=== PATIENT | male | born 1975 | race Caucasian/White ===

== ENCOUNTER 2021-07-11 12:52 | Emergency (ER) | payer BC, SELFPAY ==
[2021-07-11] VITALS (8 sets, daily range): BP systolic 101–143; BP diastolic 61–86; PULSE 64–77; RESP 18–20; TEMP 36.6–36.7; O2SAT 92–100; BMI 28.5
--- NOTE | 2021-07-11 12:53 | CT_ITS ---
PROCEDURE INFORMATION: Exam: CT Head Without Contrast Exam date and time: 07/11/2021 12:53 PM Age: 45 years old Clinical indication: Other: Stroke protocol TECHNIQUE: Imaging protocol: Computed tomography of the head without contrast. Radiation optimization: All CT scans at this facility use at least one of these dose optimization techniques: automated exposure control; mA and/or kV adjustment per patient size (includes targeted exams where dose is matched to clinical indication); or iterative reconstruction. Other technique: STROKE PROTOCOL was implemented. COMPARISON: No relevant prior studies available. FINDINGS: Brain: There is no acute hemorrhage or mass effect. The normal isidro/white matter delineation is preserved. Cerebral ventricles: No ventriculomegaly. Paranasal sinuses: There is polypoid mucosal thickening along the floors of the maxillary sinuses. Mastoid air cells: Visualized mastoid air cells are well aerated. Bones/joints: Unremarkable. No acute fracture. Soft tissues: There is focal right parietal soft tissue swelling. IMPRESSION: No acute intracranial hemorrhage or edema. ASSESSMENT: ASPECTS ([place] Stroke Program Early CT Score) is 10.
[2021-07-11 13:15] LABS: Basophils # 0.1 K/mm3 (0-0.2); Basophils % 0.6 % (0.1-2.0); Eosinophils # 0.1 K/mm3 (0.0-0.4); Hematocrit 49.4 % (42.0-52.0); Hemoglobin 17.4 g/dL (14.1-18.0); Lymphocytes # 1.4 K/mm3 (0.7-4.5); Lymphocytes % 14.4 % (10-50); Mean Corpuscular HGB Conc 35.3 g/dL (31.8-35.4); Mean Corpuscular Hemoglobin 32.5 pg (27.0-31.2); Mean Corpuscular Volume 92.2 fl (80-94); Mean Platelet Volume 8.2 fl (7.4-10.4); Monocytes # 0.3 K/mm3 (0.1-1.0); Monocytes % 3.6 % (1.7-9.3); Neutrophils # 7.6 K/mm3 (1.8-7.8); Neutrophils % 80.5 % (37.0-80.0); Platelet Count 232 K/mm3 (142-424); Red Blood Count 5.36 M/mm3 (4.60-6.20); Red Cell Distribution Width 14.2 % (11.5-17.5); White Blood Count 9.4 K/mm3 (4.8-10.8)
[2021-07-11 13:17] LABS: Chloride 101 mmol/L (98-107); Potassium 4.1 mmoL/L (3.5-5.1); Sodium 143 mmol/L (136-145)
[2021-07-11 13:19] LABS: Alanine Aminotransferase 40 U/L (12-78); Aspartate Amino Transferase 44 U/L (17-59); Blood Urea Nitrogen 10 mg/dl (9-20); Creatinine Clearance Estimated 212 mL/min (50-200); Estimated Glomerular Filt Rate 146 ml/min (>60); GFR (African American) 177 ML/MIN (>60)
[2021-07-11 13:20] LABS: Albumin Level 4.6 g/dl (3.5-5.0); Albumin/Globulin Ratio 1.8 (1.1-1.8); Alkaline Phosphatase 58 U/L (38-126); Anion Gap 19.1 mEq/L (5-15); Bilirubin,Total 0.6 mg/dl (0.2-1.3); Calcium 9.1 mg/dl (8.4-10.2); Carbon Dioxide 27 mmol/L (22.0-30.0); Globulin 2.6 g/dL (1.3-3.2); Glucose 141 mg/dl (74-100); Total Protein,Serum 7.2 g/dl (6.3-8.2)
--- NOTE | 2021-07-11 13:47 | PC.NURSE ---
SPOKE WITH PT HAS BEEN HAVING THESE EPISODES FOR 1 1/2 YEARS. PT IS ACTING NO DIFFERENT STARTS WITH MOVEMENT TO LEFT HAND AND FOOT LASTING APPROX 30 MIN THEN BRIEF PERIOD OF UNRESPONSIVE THEN AWAKENS REPEATS WORDING CONSTANTLY TELLING YOU HE IS SORRY SLEEPS FOR APPROX 1 HOUR THEN AWAKENS FINE.
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
--- NOTE | 2021-07-11 15:17 | PC.NURSE ---
PT GOING FOR MRI
--- NOTE | 2021-07-11 15:58 | XR_ITS ---
PROCEDURE: XR ORBIT BILATERAL MIN 4V CLINICAL INDICATION: rule out metal artifact. COMPARISON: No exams were available for comparison TECHNIQUE: AP views are obtained of the orbits with the patient looking up and down. FINDINGS: No radio opaque foreign bodies evident. IMPRESSION: No radio opaque orbital foreign body identified. Dictated by: Tin Ramirez MD 07/11/2021 18:49 Tin Ramirez MD in [place] 07/11/2021 18:49
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
== END 2021-07-11 18:48 | disposition home or self-care (01) ==
PROVIDERS: Emergency Provider Emergency Medicine; PCP Family Medicine
DX: R41.0 Disorientation, unspecified (principal); S01.01XA Laceration without foreign body of scalp, initial encounter; W18.39XA Other fall on same level, initial encounter; Y92.018 Other place in single-family (private) house as the place of occurrence of the external cause; E11.9 Type 2 diabetes mellitus without complications; I10 Essential (primary) hypertension; Z88.7 Allergy status to serum and vaccine
CPT/HCPCS: 12002; 70200; 70450; 70551; 80053; 85025; 96365; 99282; J1953

== ENCOUNTER → 2021-07-19 09:29 | Outpatient (CLI) | payer BC, SELFPAY | PROVIDERS: PCP Family Medicine; Visit Provider Specialist | DX: R56.9 Unspecified convulsions (principal) | CPT/HCPCS: 95816; 95819 ==

== ENCOUNTER → 2021-08-01 11:33 | Outpatient (CLI) | payer BC, SELFPAY ==
--- NOTE | 2021-08-01 11:38 | XR_ITS ---
PROCEDURE: XR HIP RT 2-3V W/PELVIS CLINICAL INDICATION: chronic right hip pain COMPARISON: No exams were available for comparison FINDINGS: No fracture or dislocation. No significant degenerative change. No lytic or blastic change. IMPRESSION: Negative right hip Dictated by: Tin Ramirez MD 08/01/2021 17:13 Tin Ramirez MD in [place] 08/01/2021 17:13
--- NOTE | 2021-08-01 11:50 | XR_ITS ---
PROCEDURE: XR HIP LT 2-3V W/PELVIS CLINICAL INDICATION: osteoarthritis COMPARISON: CR XR HIP RT 2-3V W/PELVIS from 08/01/2021 FINDINGS: There are osteo arthritic changes involving the left hip with osteophytes the femoral head. Sclerotic focus is present in the lower ilium on the left and may represent a bone island.. IMPRESSION: Mild osteoarthritic change of the left hip Dictated by: Tin Ramirez MD 08/01/2021 17:13 Tin Ramirez MD in [place] 08/01/2021 17:13
== END ==
PROVIDERS: PCP Family Medicine; Visit Provider Specialist
DX: M25.551 Pain in right hip (principal); M25.552 Pain in left hip
CPT/HCPCS: 73502

== ENCOUNTER 2022-04-28 19:22 | Emergency (ER) | payer BC, SELFPAY ==
[2022-04-28 19:22] VITALS: BP 111/76; PULSE 82; RESP 17; TEMP 36.6; O2SAT 98; BMI 30.1
--- NOTE | 2022-04-28 19:26 | ECG_ITS ---
APPROVED REPORT Exam: Resting ECG HR:78 bpm ECG Measurements Heart Rate 78 AXES IN 144 P 32 QRSd 109 QRS 21 QT 381 T 31 QTc 414 Conclusion SINUS RHYTHM MINIMAL VOLTAGE CRITERIA FOR LVH, CONSIDER NORMAL VARIANT [MEETS CRITERIA IN ONE OF: R(aVL), S(V1), R(V5), R(V5/V6)+S(V1)] BORDERLINE ECG UNCONFIRMED REPORT Electronically signed by : Soham Sebastian MD 04/30/2022 15:14:12
[2022-04-28 19:32] LABS: POC Glucose,Bedside 129 (70-110)
--- NOTE | 2022-04-28 19:33 | XR_ITS ---
PROCEDURE INFORMATION: Exam: XR Chest Exam date and time: 04/28/2022 7:40 PM Age: 46 years old Clinical indication: Other: Syncope TECHNIQUE: Imaging protocol: Radiologic exam of the chest. Views: 2 views. COMPARISON: No relevant prior studies available. FINDINGS: Lungs: Unremarkable. No consolidation. Pleural spaces: Unremarkable. No pleural effusion. No pneumothorax. Heart/Mediastinum: Unremarkable. No cardiomegaly. Bones/joints: Unremarkable. IMPRESSION: No acute findings.
[2022-04-28 20:02] LABS: Basophils # 0.1 K/mm3 (0-0.2); Eosinophils # 0.1 K/mm3 (0.0-0.4); Eosinophils % 0.8 % (0.1-12.0); Hematocrit 49.6 % (42.0-52.0); Hemoglobin 16.4 g/dL (14.1-18.0); Lymphocytes # 1.1 K/mm3 (0.7-4.5); Lymphocytes % 11.1 % (10-50); Mean Corpuscular Hemoglobin 31.6 pg (27.0-31.2); Mean Corpuscular Volume 95.8 fl (80-94); Mean Platelet Volume 7.8 fl (7.4-10.4); Monocytes # 0.3 K/mm3 (0.1-1.0); Monocytes % 3.5 % (1.7-9.3); Neutrophils # 8.1 K/mm3 (1.8-7.8); Neutrophils % 83.7 % (37.0-80.0); Platelet Count 227 K/mm3 (142-424); Red Blood Count 5.18 M/mm3 (4.60-6.20); Red Cell Distribution Width 13.6 % (11.5-17.5); White Blood Count 9.7 K/mm3 (4.8-10.8)
[2022-04-28 20:08] LABS: Ethyl Alcohol 257 mg/dl (0-10)
[2022-04-28 20:09] LABS: Alanine Aminotransferase 51 U/L (12-78); Albumin Level 4.5 g/dl (3.5-5.0); Alkaline Phosphatase 57 U/L (38-126); Anion Gap 25.6 mEq/L (5-15); Aspartate Amino Transferase 43 U/L (17-59); Bilirubin,Indirect 0.4 mg/dL (0.0-0.9); Bilirubin,Total 0.4 mg/dl (0.2-1.3); Bilirubin,Unconjugated 0.3 mg/dL (0.0-1.1); Blood Urea Nitrogen 8 mg/dl (9-20); Calcium 8.4 mg/dl (8.4-10.2); Carbon Dioxide 19 mmol/L (22.0-30.0); Chloride 104 mmol/L (98-107); Creatinine Clearance Estimated 180 mL/min (50-200); Estimated Glomerular Filt Rate 122 ml/min (>60); GFR (African American) 148 ML/MIN (>60); Glucose 125 mg/dl (74-100); Potassium 3.6 mmoL/L (3.5-5.1); Sodium 145 mmol/L (136-145); Total Protein,Serum 6.9 g/dl (6.3-8.2)
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
[2022-04-28 21:09] VITALS: BP 136/79; PULSE 71; RESP 16; TEMP 36.7; O2SAT 98
== END 2022-04-28 21:12 | disposition home or self-care (01) ==
PROVIDERS: Emergency Medicine; Emergency Provider Emergency Medicine; PCP Family Medicine
DX: R55 Syncope and collapse (principal); R41.0 Disorientation, unspecified; R11.0 Nausea; Z79.899 Other long term (current) drug therapy; Z88.0 Allergy status to penicillin; Z88.7 Allergy status to serum and vaccine; V84.5XXA Driver of special agricultural vehicle injured in nontraffic accident, initial encounter
CPT/HCPCS: 71046; 80048; 80076; 82962; 85025; 93005; 99284

== ENCOUNTER 2022-07-02 20:32 | Emergency (ER) | payer OTHER, BC, SELFPAY ==
[2022-07-02 20:33] VITALS: BP 150/77; PULSE 81; RESP 16; TEMP 36.6; O2SAT 99; BMI 30.1
--- NOTE | 2022-07-02 21:55 | XR_ITS ---
PROCEDURE INFORMATION: Exam: XR Chest Exam date and time: 07/02/2022 9:54 PM Age: 46 years old Clinical indication: Injury or trauma; Fall; Blunt trauma (contusions or hematomas) TECHNIQUE: Imaging protocol: Radiologic exam of the chest. Views: 2 views. COMPARISON: CR XR CHEST 2V 04/28/2022 7:40 PM FINDINGS: Lungs: No acute pulmonary findings. No pulmonary consolidation. Lung volumes within normal limits. Chronic calcified right lower pulmonary granuloma. Pulmonary vessels are not congested. Pleural spaces: Unremarkable. No significant pleural effusion. No pneumothorax. Heart/Mediastinum: Cardiac size appears within normal limits. Bones/joints: There are spinal degenerative changes, with multilevel disc narrrowing and spondylosis. There is a minimal chronic deformity of the anterior left 1st rib, unchanged. No definite acute rib fracture seen on this limited study. IMPRESSION: No acute findings or significant change compared with 04/28/2022.
--- NOTE | 2022-07-02 21:55 | XR_ITS ---
PROCEDURE INFORMATION: Exam: XR Left Tibia and Fibula Exam date and time: 07/02/2022 9:57 PM Age: 46 years old Clinical indication: Injury or trauma; Fall; Blunt trauma; Lower leg; Left TECHNIQUE: Imaging protocol: Radiologic exam of the Left tibia and fibula. Views: 2 views. Four images received. COMPARISON: No relevant prior studies available. FINDINGS: Bones/joints: No acute fracture or dislocation. Knee and ankle joints appear grossly intact and normally aligned. There are no lytic skeletal lesions seen. Some overlying clothing artifacts at the knee. Tiny Achilles and plantar calcaneal spurs. Soft tissues: Mild soft tissue swelling, pretibial swelling.No radiopaque foreign bodies. No pathologic soft tissue calcification. IMPRESSION: No acute fracture or dislocation.
--- NOTE | 2022-07-02 22:10 | HMH.EDFALL ---
Discharge Plan Disposition Patient Disposition: Home, Self-Care Chief Complaint: Fall Prescriptions Prescriptions: No Action Xigduo XR 5-1,000 mg tablet, IR - ER, biphasic 24hr 1 tab PO DAILY atenolol 50 mg tablet 50 mg PO DAILY valsartan 160 mg tablet 160 mg PO DAILY multivitamin Tablet 1 tab PO DAILY levetiracetam [Keppra XR] 500 mg tablet extended release 24 hr 2,000 mg PO DAILY Qty: 360 3RF Referrals Follow up/Referrals: Reid Pichardo MD [Primary Care Provider] - See instructions Clinical Impressions Clinical Impression: Contusion of left lower leg, Abrasion, multiple sites Instructions Patient Instructions: DI for Contusion Discharge ED Provider: Nabeel Barton Fall HPI General Chief Complaint: Fall Stated Complaint: wc 07/02, left leg/head pain Time Seen by Provider: 07/02/22 22:10 Mode of Arrival: Ambulatory Source of Information: Patient, Spouse and Medical Record Limitations: No Limitations Description of Symptoms (Recalled from ER Triage Doc. 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 pt c/o rt index finger abrasion, lt mujica pain History of Present Illness HPI Narrative: stepped through floor on duty with abrasion rt index finger and abrasion to lt tib/fib and upper lip lac - innure and hit lt facial area complaint: fall Onset (ago): hour(s) Fall from: standing Fall witnessed: no Place fall occurred: work Loss of consciousness: none Prolonged down time: no Context: tripped/slipped Location of injury - extremities: Left: lower leg Severity: moderate Associated symptoms (after fall): denies Related Data Home Medications Medication Instructions Recorded Confirmed atenolol 50 mg tablet 50 mg PO DAILY 07/17/21 08/01/21 dapagliflozin 5 mg-metformin ER 1 tab PO DAILY 07/17/21 08/01/21 1,000 mg tablet,extended release 24hr (Xigduo XR) multivitamin 1 tab PO DAILY 07/17/21 08/01/21 valsartan 160 mg tablet 160 mg PO DAILY 07/17/21 08/01/21 Previous Rx's Medication Instructions Recorded levetiracetam 500 mg 2,000 mg PO DAILY #360 tabs 08/01/21 tablet,extended release 24 hr (Keppra XR) Allergies Allergy/AdvReac Type Severity Reaction Status Date / Time Penicillins Allergy Mild rash Verified 08/01/21 10:14 Influenza Virus Vaccines Allergy Verified 08/01/21 10:14 PFSH PFSH Social History Smoking Status: Former smoker alcohol intake: current substance use type: denies use current occupational status: employed Travel in the last 8 weeks: None household members: spouse and children housing: house ROS Obtained: Yes All systems reviewed & no additional complaints except as documented Physical Exam General General appearance: alert Head Head exam: normocephalic Eye Eye exam: Present PERRL and EOMI ENT ENT exam: Present mucous membranes moist and other (small lt upper inner lip lac -) Neck Neck exam: Present trachea midline; Absent tenderness or meningismus Respiratory Respiratory exam: Absent respiratory distress Cardiovascular Cardiovascular exam: Present regular rate Extremities Exam Extremities exam: Present full ROM Neurological Exam Neurological exam: Present alert, oriented X3, CN II-XII intact and other (gcs=15) Skin Skin exam: Present other (abrasion rt index finger with no clinical fx/tendon injury and abrasion to lt ant tibia ) Medical Decision Making Medical Records Medical records reviewed: Yes I reviewed the patient's medical records. Coy Inquiry Pt receiving controlled substance: No Vital Signs: 07/02/22 20:33 Temperature 97.9 F Temperature Source Oral Pulse Rate [Right] 81 Respiratory Rate 16 Blood Pressure [Right Arm] 150/77 H Blood Pressure Mean [Right Arm] 101 02 Sat by Pulse Oximetry 99 Lab Data Lab results reviewed: Yes I reviewed the patient's lab results. Orders (Tests/Meds): ED MEDICATIONS Discontinued Medicati
[2022-07-02 22:58] VITALS: BP 135/81; PULSE 79; RESP 16; TEMP 36.6; O2SAT 99
== END 2022-07-02 23:04 | disposition home or self-care (01) ==
PROVIDERS: Emergency Provider Emergency Medicine; PCP Family Medicine
DX: R51.9 Headache, unspecified (principal); S80.12XA Contusion of left lower leg, initial encounter; S60.410A Abrasion of right index finger, initial encounter; S80.812A Abrasion, left lower leg, initial encounter; S01.511A Laceration without foreign body of lip, initial encounter; W13.3XXA Fall through floor, initial encounter; Z23 Encounter for immunization
CPT/HCPCS: 71046; 73590; 90471; 90714; 99283

== ENCOUNTER 2022-07-09 16:32 | Emergency (ER) | payer OTHER, BC, SELFPAY ==
[2022-07-09 16:34] VITALS: BP 158/98; PULSE 78; RESP 16; TEMP 36.9; O2SAT 98; BMI 30.4
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
--- NOTE | 2022-07-09 18:29 | PC.NURSE ---
Contacted [facility] for Ortho Consult; images were power-shared. Awaiting call back at this time
--- NOTE | 2022-07-09 19:13 | PC.NURSE ---
Dr. Yao requested that we contact [facility] for consults; awaiting a call back
--- NOTE | 2022-07-09 20:29 | PC.NURSE ---
Called [phone] for [facility] consult. Was informed that md will be calling back regarding consult.
[2022-07-09 20:54] VITALS: BP 152/80; PULSE 78; RESP 18; TEMP 36.6; O2SAT 99
== END 2022-07-09 20:57 | disposition home or self-care (01) ==
PROVIDERS: Emergency Provider Emergency Medicine; PCP Family Medicine
DX: L02.511 Cutaneous abscess of right hand; W13.3XXA Fall through floor, initial encounter; Y99.0 Civilian activity done for income or pay; Z79.899 Other long term (current) drug therapy; Z88.0 Allergy status to penicillin; Z88.7 Allergy status to serum and vaccine
CPT/HCPCS: 26010; 73120; 96372; 99283